=== PATIENT | male | born 1960 | race Caucasian/White ===

== ENCOUNTER 2018-04-05 23:47 | Inpatient (IN) | payer MEDICAID ==
[~2018-04-05] VITALS: Ht 167.6 cm; Wt 41.7 kg
[2018-04-05 23:56] VITALS: BP_SYST 127
[2018-04-06] MEDS ORDERED: ACETAMINOPHEN 325 MG TABLET PO PRN (00:30)
[2018-04-06] MEDS ORDERED: ONDANSETRON HCL 4 MG/2 ML VIAL IM PRN (00:30)
[2018-04-06] MEDS ORDERED: POTASSIUM CHLORIDE 40 MEQ in NS 250 ML IV ONE (00:30)
[2018-04-06] MEDS ORDERED: LISINOPRIL 10 MG TABLET (PRINIVIL) PO SCH ×2 (00:30→01:30)
[2018-04-06 00:57] VITALS: BP_SYST 127
[2018-04-06] MEDS ORDERED: KCL 20 mEq in 100 mL (PREMIX) 100 ML IV ONE ×2 (02:00→04:00)
[2018-04-06] MEDS: D5NS 1,000 ML IV SCH (02:47)
[2018-04-06] MEDS ORDERED: LISI10TA5 PO (03:00)
[2018-04-06 07:52] LABS: ALBUMIN 2.8 g/dL (3.4-4.8); CALCIUM 7.5 mg/dL (8.4-11.0); CREATININE 0.54 mg/dL (0.55-1.30); POTASSIUM 3.6 mmol/L (3.5-5.1); TOTAL BILIRUBIN 1.4 mg/dL (0.0-1.0)
[2018-04-06 07:58] LABS: BASOPHILS # (AUTO) 0.1 K/uL (0.0-0.2); BASOPHILS % (AUTO) 1.6 % (0.0-2.0); HEMOGLOBIN 11.5 g/dL (14.0-18.0); LYMPHOCYTES # (AUTO) 0.5 K/uL (1.0-5.5); LYMPHOCYTES % (AUTO) 6.6 % (20.5-51.5); MEAN CORPUSCULAR HEMOGLOBIN 32 pg (27-31); MEAN CORPUSCULAR HGB CONC 34 % (32-36); MEAN CORPUSCULAR VOLUME 95 fL (79.0-98.0); MONOCYTES # (AUTO) 0.1 K/uL (0.0-1.0); MONOCYTES % (AUTO) 1.4 % (1.7-9.3); NEUTROPHILS # (AUTO) 6.7 K/uL (1.8-7.7); NEUTROPHILS % (AUTO) 90.4 % (40.0-70.0); PLATELET COUNT (AUTO) 257 K/uL (130-430); RED BLOOD CELL COUNT(AUTO) 3.58 MIL/uL (4.2-6.2); WHITE BLOOD COUNT (AUTO) 7.4 K/uL (4.8-10.8)
[2018-04-06 09:00] VITALS: BP_SYST 145
[2018-04-06] MEDS: ENOXAPARIN SODIUM 40 MG/0.4 ML SYRINGE SUBCUT SCH ×2 (09:00→10:08)
[2018-04-06] MEDS: LISINOPRIL 10 MG TABLET (PRINIVIL) PO SCH (10:05)
[2018-04-06 11:54] VITALS: BP_SYST 144
[2018-04-06 15:00] VITALS: BP_SYST 138
[2018-04-06 20:00] VITALS: BP_SYST 153
[2018-04-06 23:40] VITALS: BP_SYST 138
[2018-04-07] MEDS: D5NS 1,000 ML IV SCH ×3 (01:10→16:14)
[2018-04-07 06:31] LABS: ALBUMIN 2.4 g/dL (3.4-4.8); CREATININE 0.76 mg/dL (0.55-1.30); TOTAL BILIRUBIN 0.6 mg/dL (0.0-1.0)
[2018-04-07 06:54] LABS: POTASSIUM 2.3 mmol/L (3.5-5.1)
[2018-04-07 07:01] LABS: BASOPHILS % (AUTO) 1.1 % (0.0-2.0); EOSINOPHILS % (AUTO) 0.9 % (0.0-4.0); HEMOGLOBIN 9.5 g/dL (14.0-18.0); LYMPHOCYTES # (AUTO) 0.5 K/uL (1.0-5.5); LYMPHOCYTES % (AUTO) 13.2 % (20.5-51.5); MEAN CORPUSCULAR HEMOGLOBIN 30 pg (27-31); MEAN CORPUSCULAR HGB CONC 32 % (32-36); MEAN CORPUSCULAR VOLUME 96 fL (79.0-98.0); MONOCYTES # (AUTO) 0.1 K/uL (0.0-1.0); MONOCYTES % (AUTO) 2.5 % (1.7-9.3); NEUTROPHILS # (AUTO) 3.4 K/uL (1.8-7.7); NEUTROPHILS % (AUTO) 82.3 % (40.0-70.0); PLATELET COUNT (AUTO) 219 K/uL (130-430); RED BLOOD CELL COUNT(AUTO) 3.14 MIL/uL (4.2-6.2); RED CELL DISTRIBUTION WIDTH 14.1 % (9.0-15.0)
[2018-04-07] MEDS ORDERED: POTASSIUM CHLORIDE 20 MEQ TAB.PRT.SR PO ONE (08:00)
[2018-04-07] MEDS ORDERED: POTASSIUM CHLORIDE 60 MEQ in NS 500 ML IV ONE (08:00)
[2018-04-07 08:30] VITALS: BP_SYST 140
[2018-04-07] MEDS: ENOXAPARIN SODIUM 40 MG/0.4 ML SYRINGE SUBCUT SCH ×2 (09:00→09:06)
[2018-04-07] MEDS: CHOLESTYRAMINE/SUCROSE 4 GM/PACKET PO SCH ×2 (09:02→20:31)
[2018-04-07] MEDS: LISINOPRIL 10 MG TABLET (PRINIVIL) PO SCH (09:07)
[2018-04-07 11:20] VITALS: BP_SYST 149
[2018-04-07 15:12] VITALS: BP_SYST 140
[2018-04-07 19:31] LABS: POTASSIUM 3.1 mmol/L (3.5-5.1)
[2018-04-07 20:00] VITALS: BP_SYST 143
[2018-04-07] MEDS ORDERED: MAGNESIUM SULFATE 50 ML IV SCH (20:00)
[2018-04-07] MEDS: POTASSIUM CHLORIDE 20 MEQ TAB.PRT.SR PO SCH (20:31)
[2018-04-07 23:20] VITALS: BP_SYST 148
[2018-04-08] MEDS: POTASSIUM CHLORIDE 20 MEQ TAB.PRT.SR PO SCH (00:21)
[2018-04-08 00:33] VITALS: BP_SYST 158
[2018-04-08 01:58] LABS: POTASSIUM 2.9 mmol/L (3.5-5.1)
[2018-04-08] MEDS ORDERED: KCL 20 mEq in 100 mL (PREMIX) 100 ML IV ONE ×3 (02:30→07:00)
[2018-04-08] MEDS: D5NS 1,000 ML IV SCH ×2 (04:57→23:06)
[2018-04-08 08:00] VITALS: BP_SYST 154
[2018-04-08] MEDS: LISINOPRIL 10 MG TABLET (PRINIVIL) PO SCH (09:59)
[2018-04-08] MEDS: POTASSIUM CHLORIDE 20 MEQ/PKT PACKET PO SCH ×2 (09:59→13:49)
[2018-04-08] MEDS: CHOLESTYRAMINE/SUCROSE 4 GM/PACKET PO SCH ×2 (10:00→21:11)
[2018-04-08] MEDS: ENOXAPARIN SODIUM 40 MG/0.4 ML SYRINGE SUBCUT SCH (10:05)
[2018-04-08 11:07] LABS: FOLATE (FOLIC ACID) 13.1 ng/mL (>3.0)
[2018-04-08] MEDS ORDERED: amLODIPine BESYLATE 5 MG TABLET PO ONE (12:00)
[2018-04-08 12:05] VITALS: BP_SYST 147
[2018-04-08 14:50] VITALS: BP_SYST 158
[2018-04-08 16:50] VITALS: BP_SYST 151
[2018-04-08] MEDS: HYDROcodone/ACETAMIN 5-325 MG TAB (NORCO/ VICODIN) PO PRN ×2 (17:06→21:21)
[2018-04-08 20:00] VITALS: BP_SYST 154
[2018-04-09 00:04] VITALS: BP_SYST 127
[2018-04-09 07:02] LABS: ALBUMIN 2.6 g/dL (3.4-4.8); CALCIUM 7.5 mg/dL (8.4-11.0); CREATININE 0.64 mg/dL (0.55-1.30); POTASSIUM 3.5 mmol/L (3.5-5.1); TOTAL BILIRUBIN 0.6 mg/dL (0.0-1.0)
[2018-04-09 08:00] VITALS: BP_SYST 157
[2018-04-09 08:37] LABS: BASOPHILS % (AUTO) 1.1 % (0.0-2.0); EOSINOPHILS # (AUTO) 0.1 K/uL (0.0-0.4); EOSINOPHILS % (AUTO) 2.3 % (0.0-4.0); HEMATOCRIT 32.7 % (36-54); LYMPHOCYTES # (AUTO) 1.1 K/uL (1.0-5.5); LYMPHOCYTES % (AUTO) 33.2 % (20.5-51.5); MEAN CORPUSCULAR HEMOGLOBIN 32 pg (27-31); MEAN CORPUSCULAR HGB CONC 34 % (32-36); MEAN CORPUSCULAR VOLUME 96 fL (79.0-98.0); MONOCYTES # (AUTO) 0.2 K/uL (0.0-1.0); MONOCYTES % (AUTO) 5.8 % (1.7-9.3); NEUTROPHILS # (AUTO) 1.8 K/uL (1.8-7.7); NEUTROPHILS % (AUTO) 57.6 % (40.0-70.0); PLATELET COUNT (AUTO) 215 K/uL (130-430); RED BLOOD CELL COUNT(AUTO) 3.42 MIL/uL (4.2-6.2); RED CELL DISTRIBUTION WIDTH 14.9 % (9.0-15.0)
[2018-04-09] MEDS ORDERED: amLODIPine BESYLATE 5 MG TABLET PO SCH (09:00)
[2018-04-09] MEDS: HYDROcodone/ACETAMIN 5-325 MG TAB (NORCO/ VICODIN) PO PRN ×3 (09:24→19:45)
[2018-04-09] MEDS: FERROUS SULFATE 325 MG TABLET.DR PO SCH ×2 (09:24→20:05)
[2018-04-09] MEDS: LISINOPRIL 10 MG TABLET (PRINIVIL) PO SCH (09:25)
[2018-04-09] MEDS: CHOLESTYRAMINE/SUCROSE 4 GM/PACKET PO SCH ×2 (09:25→21:34)
[2018-04-09] MEDS: ENOXAPARIN SODIUM 40 MG/0.4 ML SYRINGE SUBCUT SCH (09:28)
[2018-04-09 12:04] LABS: WHITE BLOOD COUNT (AUTO) 3.2 K/uL (4.8-10.8)
[2018-04-09 12:23] VITALS: BP_SYST 152
[2018-04-09] MEDS: D5NS 1,000 ML IV SCH ×2 (14:18→15:05)
[2018-04-09 16:35] VITALS: BP_SYST 145
[2018-04-09 20:00] VITALS: BP_SYST 156
[2018-04-09 23:50] VITALS: BP_SYST 155
[2018-04-10] MEDS: D5NS 1,000 ML IV SCH (06:34)
[2018-04-10] MEDS: HYDROcodone/ACETAMIN 5-325 MG TAB (NORCO/ VICODIN) PO PRN (06:45)
[2018-04-10 07:51] LABS: CEA 8.5 ng/mL (0.0-4.7)
[2018-04-10 08:00] VITALS: BP_SYST 165
[2018-04-10] MEDS ORDERED: amLODIPine BESYLATE 5 MG TABLET PO SCH (09:00)
[2018-04-10] MEDS: CHOLESTYRAMINE/SUCROSE 4 GM/PACKET PO SCH (09:59)
[2018-04-10] MEDS: FERROUS SULFATE 325 MG TABLET.DR PO SCH (09:59)
[2018-04-10] MEDS: ENOXAPARIN SODIUM 40 MG/0.4 ML SYRINGE SUBCUT SCH (09:59)
[2018-04-10] MEDS: LISINOPRIL 10 MG TABLET (PRINIVIL) PO SCH (10:01)
== END 2018-04-10 11:15 | disposition left against medical advice (07) | DRG 816 ==
LOC: STU 23:47
PROVIDERS: ADMIT Internal Medicine; ATTEND Internal Medicine
DX: T40.1X1A Poisoning by heroin, accidental (unintentional), initial encounter (principal); E43 Unspecified severe protein-calorie malnutrition; K91.1 Postgastric surgery syndromes; E87.6 Hypokalemia; Z53.21 Procedure and treatment not carried out due to patient leaving prior to being seen by health care provider; G89.29 Other chronic pain; F10.10 Alcohol abuse, uncomplicated; R55 Syncope and collapse; E16.2 Hypoglycemia, unspecified; I10 Essential (primary) hypertension; M19.90 Unspecified osteoarthritis, unspecified site; R62.7 Adult failure to thrive; K52.9 Noninfective gastroenteritis and colitis, unspecified; Z59.0 Homelessness; Z95.0 Presence of cardiac pacemaker; Z90.49 Acquired absence of other specified parts of digestive tract; Z68.1 Body mass index [BMI] 19.9 or less, adult; Y92.89 Other specified places as the place of occurrence of the external cause
CPT/HCPCS: 36415; 71045; 80053; 82378; 82607; 82746; 83036; 83690-TC; 83735-TC; 84132-TC; 84134; 84443-TC; 85025; 87230-TC; 93005; 93306; 97110-GP; 97116-GP; 97530-GP; J1650; J3475; J3480; J7040; J7042; J7050